=== PATIENT | male | born 1960 | race Caucasian/White ===

== ENCOUNTER 2024-12-19 06:29 | Day surgery (SDC) | payer BC ==
[~2024-12-19 06:29] MED LIST: Lactated Ringers 1,000 ML IV SCH; Sodium Chloride 0.9% 10 ML Syringe FLUSH PRN
[2024-12-19] MEDS ORDERED: Lactated Ringers 1,000 ML IV ONE (06:30)
[2024-12-19] MEDS ORDERED: Ondansetron 4 MG/2 ML SDV IVPUSH ONE (06:30)
[2024-12-19] MEDS ORDERED: Rocuronium 100 MG/10 ML MDV IV ONE (06:30)
[2024-12-19] MEDS ORDERED: Dexamethasone 4 MG/ML SDV INJECT ONE (06:30)
[2024-12-19] MEDS ORDERED: Sugammadex Sodium 200 MG/2 ML VIAL IV ONE (06:30)
[2024-12-19] MEDS ORDERED: Succinylcholine 200 MG/10 ML MDV IV ONE (06:30)
[2024-12-19] MEDS ORDERED: Propofol 200 MG/20 ML SDV IV ONE (06:30)
[2024-12-19] MEDS ORDERED: fentaNYL 100 MCG/2 ML SDV IV ONE (06:30)
[2024-12-19] MEDS ORDERED: Midazolam 1 MG/ML 2 ML SDV IV ONE (06:30)
[2024-12-19] MEDS ORDERED: diphenhydrAMINE 50 MG/ML SDV IVPUSH ONE (06:30)
[2024-12-19] MEDS ORDERED: Sodium Chloride 0.9% 10 ML Syringe FLUSH PRN (06:45)
[2024-12-19] MEDS: Lactated Ringers 1,000 ML IV SCH (07:15)
[2024-12-19] MEDS: Acetaminophen 500 MG Tab PO ONE (07:33)
[2024-12-19] MEDS: Gabapentin 300 MG Cap PO ONE (07:34)
[2024-12-19] MEDS: ceFAZolin 2 GM Vial IVPUSH ONE (08:10)
[2024-12-19] MEDS: Bupivacaine 0.5%/EPINEPHrine 1:200,000 30 ML SDV INJECT ONE (08:38)
== END 2024-12-19 12:31 | disposition home or self-care (01) ==
LOC: FB.SDS 06:29
PROVIDERS: ATTEND Surgery
DX: K80.12 Calculus of gallbladder with acute and chronic cholecystitis without obstruction (principal)
CPT/HCPCS: 00790; 47562; 88304; A9270; J0330; J0665; J0690; J1100; J1200; J2250; J2405; J2704; J3010; J7120